=== PATIENT | female | born 1955 | race Asian ===

== ENCOUNTER 2020-02-19 06:04 | Day surgery (SDC) | payer BC ==
[2020-02-12 14:58] LABS: BASOPHILS % (AUTO) 0.4 % (0-1); EOSINOPHILS # (AUTO) 0.2 X10'3 (0-0.9); LYMPHOCYTES % (AUTO) 33.9 % (21-51); MEAN CORPUSCULAR HEMOGLOBIN 30.1 PG (27.0-31.0); MEAN CORPUSCULAR VOLUME 91.3 FL (78-98); MEAN PLATELET VOLUME 8.1 FL (7.4-10.4); MONOCYTES # (AUTO) 0.4 X10'3 (0-0.9); MONOCYTES % (AUTO) 6.2 % (2-12); NEUTROPHILS # (AUTO) 3.3 X10'3 (1.8-7.7); NEUTROPHILS % (AUTO) 56.5 % (42-75); PRE OP HEMATOCRIT 39.5 % (35.0-45.0); PRE OP PLATELET COUNT 266 X10'3 (140-440); RED BLOOD COUNT 4.33 X10'6 (4.20-5.60); RED CELL DISTRIBUTION WIDTH 12.3 % (11.5-14.5)
[2020-02-12 15:08] LABS: PRE OP INR 0.9 INR; PRE OP PROTIME 9.7 SECONDS (9.0-12.0)
[2020-02-12 15:16] LABS: ALBUMIN 3.6 G/DL (3.4-5.0); ALKALINE PHOSPHATASE 70 IU/L (46-116); BLOOD UREA NITROGEN 11 MG/DL (7-18); BUN/CREATININE RATIO 10.8 (6.6-38.0); CALCIUM 8.8 MG/DL (8.5-10.1); CHLORIDE 107 MMOL/L (99-107); CREATININE 1.02 MG/DL (0.40-0.90); PRE OP ALT 32 U/L (30-65); PRE OP ANION GAP 7 (8-16); PRE OP AST 26 U/L (10-37); PRE OP BILIRUB, TOTAL 0.2 MG/DL (0.0-1.0); PRE OP GLUCOSE 194 MG/DL (70-104); PRE OP POTASSIUM 3.7 MMOL/L (3.4-5.1); PRE OP SODIUM 142 MMOL/L (135-145); TOTAL CARBON DIOXIDE 27.9 MMOL/L (24-32); TOTAL PROTEIN 7.3 G/DL (6.4-8.2); eGFR 55 ML/MIN
[~2020-02-19] VITALS: Ht 154.9 cm; Wt 60.9 kg
[2020-02-19] VITALS (8 sets, daily range): BP systolic 126–151; BP diastolic 66–84
[~2020-02-19 06:04] MED LIST: AMIT25TA10 PO; LISI-600 PO; RALO60TA55 PO; SIMV-45 PO; famotidine 20mg tablet PO ONE; oxymetazoline 15 ML nasal spray NS ONE; ringers solution, lacted 1,000 ML IV SCH
[2020-02-19] MEDS ORDERED: LIDOcaine 1% W/epiNEPHrine 1:100,000 20ml vial ONE (06:41)
[2020-02-19] MEDS ORDERED: cocaine 4% topical solution 4ml bottle ONE (06:41)
[2020-02-19] MEDS ORDERED: mupirocin 2% ointment 22GM ONE (06:41)
[2020-02-19] MEDS ORDERED: BUPIVAcaine 0.5% W/EPI /PF 30ml vial ONE (06:42)
[2020-02-19] MEDS ORDERED: cefTAZidime 1gm inj ONE (06:42)
[2020-02-19] MEDS ORDERED: oxymetazoline 15 ML nasal spray NS ONE ×2 (06:42→10:40)
[2020-02-19] MEDS ORDERED: sevoflurane 250ml liquid IH ONE (08:04)
[2020-02-19] MEDS ORDERED: propofol inj 20 ML IV ONE (08:05)
[2020-02-19] MEDS ORDERED: midazolam 2 mg/2 ml injection ONE (08:05)
[2020-02-19] MEDS ORDERED: fentaNYL/PF 50MCG/1 ML 2ML syringe ONE (08:05)
[2020-02-19] MEDS ORDERED: ringers solution, lacted 1,000 ML IV SCH (08:07)
[2020-02-19] MEDS ORDERED: ondansetron/PF 4mg/2ml inj IV PRN (08:10)
[2020-02-19] MEDS ORDERED: morphine 4 MG/ML inj SYRINge IV PRN (08:10)
[2020-02-19] MEDS ORDERED: meperidine/PF 25mg/ml syringe IV PRN ×3 (08:10)
[2020-02-19] MEDS ORDERED: proCHLORperazine 10 MG/2 ml inj IV PRN (08:10)
[2020-02-19] MEDS ORDERED: morphine 2 MG/ML inj. syringe IV PRN (08:10)
[2020-02-19] MEDS ORDERED: dexamethasone sod phosphate 4mg/ml inj. ONE (08:44)
[2020-02-19] MEDS ORDERED: ePHEDrine 50MG/ML INJ. ONE (08:44)
[2020-02-19] MEDS ORDERED: ondansetron/PF 4mg/2ml inj ONE (08:44)
--- NOTE | 2020-02-19 10:17 | NUR ---
Received from OR via , accompanied by Anesthesiologist DR JALLOH and report given by Anesthesiolgist. AWAKENS TO VOICE. VITALS STABLE. NO BLEEDING NOTED. DIANE PAIN.
[2020-02-19] MEDS ORDERED: lisinopril 20mg tablet PO ONE ×2 (10:30→11:05)
[2020-02-19] MEDS ORDERED: salt irrigation nasal spray 45 ML SPRAY NS PRN (10:35)
[2020-02-19] MEDS ORDERED: mupirocin 2% nasal ointment 1gm UD NS ONE (10:35)
--- NOTE | 2020-02-19 11:27 | NUR ---
AWAKE AND ORIENTED. VITALS STABLE. DRESSING APPLIED FOR OOZING.DIANE PAIN. HOME WITH HER SPOUSE AT THIS TIME.
== END 2020-02-19 11:27 | disposition home or self-care (01) ==
LOC: PAS 06:04
PROVIDERS: ATTEND Otolaryngology
DX: J32.8 Other chronic sinusitis (principal); I10 Essential (primary) hypertension; M54.30 Sciatica, unspecified side; Z88.1 Allergy status to other antibiotic agents; Z79.01 Long term (current) use of anticoagulants; Z79.899 Other long term (current) drug therapy; Z11.59 Encounter for screening for other viral diseases; Z72.89 Other problems related to lifestyle; Z98.890 Other specified postprocedural states
CPT/HCPCS: 31253; 31267; 36415; 61782; 80053; 82948; 85025; 85576; 85610; 85730; 87070; 87075; 87102; 87635; 93005; A6402; C1726; C9250; C9803; J0713; J1100; J2250; J2405; J2704; J3010; J7040; J7120; U0003; 87077; 87186; A4618; A7000